=== PATIENT | male | born 1995 | race Caucasian/White ===

== ENCOUNTER 2017-06-06 18:53 | Inpatient (IN) | payer BC, OTHER ==
[~2017-06-06] VITALS: Ht 167.6 cm; Wt 63.5 kg
--- NOTE | 2017-06-07 02:00 | NUR ---
Intake Assessment Assessment done in the intake office. Px appears anxious but cooperative. A&Ox4. Px has NKA, on regular diet, wishes to be in full code. Px is ambulatory, with steady gait. Speech is clear and audible. ER=855/79, AZ= 109, RR= 18, O2sat= 97%, T= 97.3. Px is here for opiates, methamphetamine and ETOH dependence. No hx of seizures. No home medications with him. Unit protocols explained, and verbalized understanding.
[2017-06-07] MEDS ORDERED: LOPERAMIDE HCL 2 MG CAPSULE PO PRN ×2 (02:15)
[2017-06-07] MEDS ORDERED: MAGNESIUM HYDROXIDE 30 ML LIQUID UDC PO PRN (02:15)
[2017-06-07] MEDS ORDERED: IBUPROFEN 400 MG TABLET PO PRN (02:15)
[2017-06-07] MEDS ORDERED: THIAMINE HCL 200 MG/2 ML VIAL IM ONE (02:15)
[2017-06-07] MEDS ORDERED: DICYCLOMINE HCL 20 MG TABLET PO PRN (02:15)
[2017-06-07] MEDS ORDERED: ACETAMINOPHEN 325 MG TABLET PO PRN (02:15)
[2017-06-07] MEDS ORDERED: ONDANSETRON 4 MG/2 ML VIAL IM PRN (02:15)
[2017-06-07] MEDS ORDERED: LORAZEPAM 2 MG/1 ML VIAL IM PRN (02:15)
[2017-06-07] MEDS ORDERED: diphenhydrAMINE 50 MG CAPSULE PO PRN (02:15)
[2017-06-07] MEDS ORDERED: ONDANSETRON ODT 4 MG TAB.RAPDIS SL PRN (02:15)
[2017-06-07] MEDS ORDERED: MAG HYDROX/AL HYDROX/SIMETH 30 ML LIQUID UDC PO PRN (02:15)
[2017-06-07] MEDS ORDERED: MIRALAX 17 GM POWD.PACK PO PRN (02:15)
[2017-06-07] MEDS ORDERED: HYDROXYZINE PAMOATE 25 MG CAPSULE PO PRN (02:15)
[2017-06-07] MEDS ORDERED: CLONIDINE HCL 0.1 MG TABLET PO PRN (02:15)
[2017-06-07] MEDS ORDERED: LORAZEPAM 1 MG TABLET PO PRN (02:15)
--- NOTE | 2017-06-07 02:20 | NUR ---
Admission Notes 22 y/o male admitted on 06/07/17 for Opiate, Meth and ETOH dependence, arrived on the unit at 0220. Pt has NKA, denies history of seizures. Pt was able to provide UDS. Upon admission COWS 7 and CIWA 6 . BP: 127/79, P: 103, R: 18, O2: 97%, T: 98.2. Weight 140 lbs, height 56. Px reports he does not have a PCP, smokes .5 to 1 pack daily, denies being hospitalized within past 30 days. Px is able to understand and respond to all questions pertaining to his hospitalization. Substance Abuse History is as follows: 1. Oxycontine 30 mg x 10 to 15 pills taken PO daily for 5- 6 years 2. Methamphetamine 2- 3 G smoked daily for 2 years 3. Cognac 500 ml daily intermittently for 12 years, continuous for last 6 months Px's longest sober period for 5 days while px was in [facility] in [place], [place] from 05/31/2017 to 06/05/2017. Treatment history: Px was in [facility] in [place] from 05/31/2017 to 06/05/2017. PMH: Anxiety, depression. Px had minor surgeries on Left Hand and on Left Knee. Px did not bring any medications from home, but reports taking Trazodone, Clonidine, Rocaxin and Gabapentin, to be reconcile. Upon assessment, px is A&Ox4, px is mildly intoxicated, presents with anxiety,and has general body aches of 7/10. Respirations even and unlabored. Denies SOB, chest pain, N/V/D. Bowel sounds active x 4, abdomen soft. PERRLA. Skin intact, no open wounds noted. Px denies SI/HI. Educational information provided and left at bedside. Px oriented to room and encouraged to notify staff with any concerns. Safety measures in place. Call light within reach, side rails up x 2, bed locked and in low position. We'll continue to monitor.
[2017-06-07 02:53] LABS: BASOPHILS # (AUTO) 0.1 K/uL (0.0-8.0); BASOPHILS % (AUTO) 0.6 % (0.0-2.0); EOSINOPHILS # (AUTO) 0.1 K/uL (0.0-0.7); EOSINOPHILS % (AUTO) 0.8 % (0.0-7.0); HEMATOCRIT 43.3 % (40-50); HEMOGLOBIN 14.9 G/DL (14.0-18.0); LYMPHOCYTES % (AUTO) 22.7 % (20.5-51.5); MEAN CORPUSCULAR HEMOGLOBIN 29.7 UUG (27.0-31.0); MEAN CORPUSCULAR HGB CONC 34 g/dL (32.0-37.0); MEAN CORPUSCULAR VOLUME 86.5 FL (82.0-92.0); MONOCYTES # (AUTO) 0.7 K/UL (0.1-1.30); MONOCYTES % (AUTO) 7.6 % (0.0-11.0); NEUTROPHILS # (AUTO) 6.1 K/UL (1.8-8.9); NEUTROPHILS % (AUTO) 68.3 % (38.5-71.5); PLATELET COUNT (AUTO) 290 K/UL (150-450); RED BLOOD CELL COUNT(AUTO) 5.01 MIL/UL (4.7-6.1)
[2017-06-07 04:00] VITALS: BP 127/79
[2017-06-07] MEDS ORDERED: TRAZODONE 50 MG TABLET PO ONE (04:00)
[2017-06-07 04:07] LABS: ETHANOL < 3 MG/DL (0-0)
[2017-06-07 04:28] LABS: ALANINE AMINOTRANSFERASE 186 U/L (16-63); ALKALINE PHOSPHATASE 54 U/L (50-136); AMYLASE 84 U/L (25-115); ASPARTATE AMINOTRANSFERASE 80 U/L (15-37); BILIRUBIN,TOTAL 0.5 mg/dL (0.2-1.0); CARBON DIOXIDE 31 mmol/L (21-32); CHLORIDE 101 mmol/L (98-107); GLUCOSE 103 mg/dL (74-106); LIPASE 111 U/L (73-393); MAGNESIUM 2.1 mg/dL (1.8-2.4); POTASSIUM 3.9 mmol/L (3.5-5.1); TOTAL PROTEIN, SERUM 8.5 g/dL (6.4-8.2); UREA NITROGEN, BLOOD 11 mg/dL (7-18)
[2017-06-07] MEDS ORDERED: TRAZ-144 PO (05:01)
[2017-06-07] MEDS ORDERED: GABA-534 PO (05:01)
[2017-06-07] MEDS ORDERED: CLON0.1T PO (05:01)
[2017-06-07] MEDS ORDERED: METH-406 PO (05:01)
[2017-06-07 05:53] LABS: *AMPHETAMINE, URINE POSITIVE (NEGATIVE); *BARBITURATE, URINE NEGATIVE (NEGATIVE); *CANNABINOID, URINE NEGATIVE (NEGATIVE); *COCCAINE, URINE NEGATIVE (NEGATIVE); *OPIATE, URINE POSITIVE (NEGATIVE); *PHENCYCLIDINE SCREEN,URINE NEGATIVE (NEGATIVE)
--- NOTE | 2017-06-07 07:27 | NUR ---
End of Shift Notes 22 y/o male admitted on 06/07/17 for Opiate, Meth and ETOH dependence. Px has NKA, on regular diet, Full code. Denies history of seizures. Px presents with anxiety, and has general body aches of 7/10. Last COWS 7 and CIWA 6. Oral intake of 600 ml, voided 1x, no BM. Didnt sleep yet. Respirations even and unlabored. Safety measures in place. Call light within reach, side rails up x 2, bed locked and in low position. We'll continue to monitor.
--- NOTE | 2017-06-07 07:30 | NUR ---
Start of Shift Notes: Received patient in his room. Alert and verbally responsive. Oriented x 4. Easily arousable when his name is called. No changes in LOC noted. Respirations even and unlabored. No SOB noted. Skin warm and dry to touch. Abdomen soft and non-distended. BS (+) in all 4 quadrants. No complains of N/V/D or constipation noted. Bladder non-distended. No complains of dysuria noted. Voids independently. Ambulatory ad boone with steady gait. Patient is a 22 year old male admitted for opiate/meth and ETOH dependence who was placed on PRNs at this time. Prior to admission, patient was using 10-15 pills of 30 mg Ocycontin, 2-3 grams of methamphetamine and intermittent use of 500cc of cognac. Has reported past medical hx of anxiety, depression and minor surgeries to left hand and left knee. NKA. FULL CODE. Regular diet. On fall and seizure precautions. Educated patient on his current plan of care for the day and his medication regimen. Encouraged oral fluid intake and encouraged group participation to learn new skills to prevent relapse. Will continue to monitor closely.
[2017-06-07 08:00] VITALS: BP 103/48
[2017-06-07] MEDS: THIAMINE HCL 100 MG TABLET PO SCH (09:00)
[2017-06-07] MEDS: MULTIVITAMINS,THERAPEUTIC TABLET PO SCH (09:00)
[2017-06-07] MEDS: FOLIC ACID 1 MG TABLET PO SCH (09:00)
[2017-06-07] MEDS ORDERED: TUBERCULIN,PURIF.PROT.DERIV. 5 TU/0.1 ML TEST ID ONE (09:00)
--- NOTE | 2017-06-07 09:23 | NUR ---
All 0900 meds refused: Patient refused all due meds at 0900. Patient states "I'm too tired to take meds right now. Maybe later in the afternoon. I don't want a TB test at this time." Patient education provided regarding risk and consequences of taking meds but patient still refused. Will continue to monitor and encourage patient to comply. Patient noted with cough. No congestion. No runny nose and afebrile.
[2017-06-07] MEDS: LORAZEPAM 1 MG TABLET PO PRN ×3 (11:06→20:54)
[2017-06-07] MEDS: BUPRENORPHINE HCL 2 MG TAB.SUBL SL PRN ×2 (11:06→23:13)
--- NOTE | 2017-06-07 11:06 | NUR ---
Subutex 4 mg SL/Ativan 1 mg PO given: / 7, patient presented with moderate anxiety, chills, hot flashes, yawning, muscle aches, stomach cramps, mild sweats. Medicated patient with Subutex 4 mg SL and Ativan 1 mg PO as ordered. Will monitor for effectiveness.
--- NOTE | 2017-06-07 11:08 | NUR ---
Admission UDS results: Patient's UDS positive for benzodiazepines. Per patient, he was given Klonopin to detox from ETOH at [facility]. MD Torre aware.
--- NOTE | 2017-06-07 11:36 | NUR ---
Re-assessment: Subutex COWS 6, patient noted with less anxiety, less chills/hot flashes, pupils normal, no stomach cramps noted. PRN Subutex effective in reducing patient's opiate withdrawal symptoms.
[2017-06-07 12:00] VITALS: BP 93/52
--- NOTE | 2017-06-07 12:06 | NUR ---
Re-assessment: Ativan CIWA 4, less anxiety, less sweating noted. PRN Ativan 1 mg PO was effective in reducing withdrawal symptoms.
[2017-06-07 16:00] VITALS: BP 136/87
[2017-06-07] MEDS: METHOCARBAMOL 750 MG TABLET PO PRN (17:34)
--- NOTE | 2017-06-07 17:34 | NUR ---
Robaxin 750 mg PO/Ativan 1 mg PO given: Patient noted with complain of moderate anxiety, with sweaty palms and muscle aches 5/10. Medicated patient with Ativan 1 mg PO and Robaxin 750 mg PO given. Will monitor for effectiveness.
--- NOTE | 2017-06-07 18:33 | NUR ---
Re-assessment: Ativan/Robaxin COWS 2/CIWA 3, less anxiety and less sweating noted. Less muscle aches noted. PRN Ativan and Robaxin were effective.
--- NOTE | 2017-06-07 18:49 | NUR ---
End of Shift Notes: Patient continues to be on PRNs to manage his withdrawal symptoms. VS monitored closely q 4 hours. No significant abnormalities noted. Patient's withdrawal symptoms were closely monitored. Initial COWS/CIWA 2/2, but at 1106, patient's COWS increased to 12 and CIWA 7. Patient presented with chills, hot flashes, body aches, stomach cramps, pupil dilation, anxiety and yawning. Medicated patient with Ativan 1 mg and Subutex 4 mg SL from PRN. At 1734, patient noted with complain of moderate anxiety muscle aches, and sweaty palms resulting in CIWA 5, so patient was medicated with Ativan 1 mg PO as ordered and Robaxin 750mg PO as ordered with help after 1 hour. Last COWS 2/CIWA 3. Per patient, Ativan and Subutex has helped him with his withdrawal symptoms. Refused 0900 meds although encouraged. Patient is unable to participate in group and activities due to his withdrawal symptoms. Encouraged oral fluid intake to aid in the detox process. All needs met and attended. Will continue to monitor closely.
[2017-06-07 20:00] VITALS: BP 128/81
--- NOTE | 2017-06-07 20:00 | NUR ---
Start of Shift Pt is a 22 year old male admitted for Opiate/ETOH dependence, PRNs available for s/s of withdrawal. Pt reported using OxyContin 30mg 10-15 pills, Meth 2-3g and ETOH 500ml at the rate of 1 day. PMH: Anxiety, depression, minor surgeries on left hand and left knee. NKA, regular diet, fall precautions and full code. Upon assessment, pt reports feeling anxious, reports muscle/joint aches, feeling hot/cold with chills, respirations even/unlabored, denies sob/chest pain, denies n/v/d. Safety measures in place, call light within reach, side rails up x2, bed locked and in low position. Will continue to monitor.
--- NOTE | 2017-06-07 20:54 | NUR ---
PRN Administration CIWA 5, pt reports feeling anxious, skin is clammy/flushed, reports feeling hot/cold with chills. Ativan 1mg PRN and Clonidine 0.1mg PRN administered. Pt reports feeling constipated, reports difficulty using the restroom. Miralax 17 gm PRN administered. Safety measures in place. Will continue to monitor.
--- NOTE | 2017-06-07 21:54 | NUR ---
PRN Reassessment CIWA 4 Pt reports bowel movement Needs met, safety measures in place, will continue to monitor.
--- NOTE | 2017-06-07 23:13 | NUR ---
PRN Administration COWS 13 Pt presents with anxiety is irritable, skin is clammy/sweaty, reports feeling joint aches, pt is unable to sit still, nose running, reports stomach cramping. Subutex 4mg PRN administered. Safety measures in place. will continue to monitor.
--- NOTE | 2017-06-07 23:43 | NUR ---
PRN Reassessment COWS 5, pt reports, "I feel better, my body does not hurt anymore" Safety measures in place, will continue to monitor.
[2017-06-08] VITALS: BP 121/75
[2017-06-08] MEDS: TRAZODONE 50 MG TABLET PO PRN ×2 (00:51→20:25)
--- NOTE | 2017-06-08 00:51 | NUR ---
PRN Administration Pt requests sleeping aid. Trazodone 50mg PRN administration Safety measures in place, will continue to monitor.
--- NOTE | 2017-06-08 01:51 | NUR ---
PRN Reassessment Upon reassessment, pt is in bed resting with eyes closed, respirations even/unlabored. Safety measures in place, will continue to monitor.
[2017-06-08 04:00] VITALS: BP 112/79
--- NOTE | 2017-06-08 04:00 | NUR ---
Vital Signs/COWS & CIWA deferred BP 112/79, pulse 80, resp 17, SpO2 99%, temp 98.1, no pain COWS/CIWA deferred due to pt sleeping, to assess while pt is awake as ordered. Safety measures in place, will continue to monitor.
--- NOTE | 2017-06-08 07:00 | NUR ---
End of Shift Pt is a 22 year old male admitted for Opiate/ETOH dependence, PRNs available for s/s of withdrawal. Pt reported using OxyContin 30mg 10-15 pills, Meth 2-3g and ETOH 500ml at the rate of 1 day. PMH: Anxiety, depression, minor surgeries on left hand and left knee. NKA, regular diet, fall precautions and full code. During shift, pt reported feeling anxious, reported muscle/joint aches, feeling hot/cold with chills - Ativan 1mg PRN administered along with Clonidine 0.1mg PRN. Subutex 4mg PRN administered for COWS 13 with c/o anxiety is irritability, skin clammy/sweaty, reported feeling joint aches, pt is unable to sit still, nose running, reported stomach cramping. Latest COWS 5 and CIWA 4. Miralax 17gm PRN administered for reports of constipation, difficulty using the restroom. Pt slept for 3 hours, intake of 2450ml PO, voids x3 and stool x1. Safety measures in place, call light within reach, side rails up x2, bed locked and in low position. Endorsed to day shift nurse.
[2017-06-08 07:06] LABS: HEPATITIS B SURFACE AG Negative (Negative)
--- NOTE | 2017-06-08 07:34 | NUR ---
BEGINNING OF SHIFT Patient endorsement report received from night coordinator nurse, all pertinent information discussed. Patient is a 22 year old male admitted on: 06/07/2017 with admitting Dx: opiate dependence. With substance use history of: methamphetamine and etoh. Patient currently under close observation, no ongoing taper. Per night coordinator patient slept for 3 hours, received PRN: Ativan, clonidine, Subutex, miralax, and trazodone. Patient with last cow score of: 5 and ciwa score of: 4. Patient received awake, alert and oriented x4, patient educated regarding plan of care and medication regimen for the day with good verbal understanding. Safety measure sin place. call light kept with in reach, will continue to monitor.
[2017-06-08 08:14] VITALS: BP 103/59
[2017-06-08] MEDS: METHOCARBAMOL 750 MG TABLET PO PRN (09:01)
[2017-06-08] MEDS: FOLIC ACID 1 MG TABLET PO SCH (09:02)
[2017-06-08] MEDS: MULTIVITAMINS,THERAPEUTIC TABLET PO SCH (09:02)
[2017-06-08] MEDS: THIAMINE HCL 100 MG TABLET PO SCH (09:02)
[2017-06-08] MEDS: LORAZEPAM 1 MG TABLET PO PRN (09:02)
--- NOTE | 2017-06-08 09:02 | NUR ---
PRN ROBAXIN Patient c/o muscle aches 5/10, provided with non pharmacological interventions with no relief, administered Robaxin as ordered, will monitor effectiveness of medication.
--- NOTE | 2017-06-08 10:00 | NUR ---
Activity Group Note: Attempt made for group participation. Client refused. Will attempt when time permits.
--- NOTE | 2017-06-08 10:02 | NUR ---
ROBAXIN REASSESSMENT Patient reports medication effective, reports pain level of 0/10 will continue to monitor.
[2017-06-08 13:01] VITALS: BP 111/58
--- NOTE | 2017-06-08 13:45 | NUR ---
Activity Group Note: Attempt made for group participation. Client refused. Will attempt again when time permits.
[2017-06-08] MEDS ORDERED: IBUP-1955 PO (14:23)
[2017-06-08] MEDS ORDERED: GABA-536 PO (14:23)
[2017-06-08] MEDS ORDERED: METH-406 PO (14:23)
[2017-06-08] MEDS ORDERED: HYDR-3895 PO (14:23)
[2017-06-08] MEDS ORDERED: DICY20TA28 PO (14:23)
[2017-06-08] MEDS: GABAPENTIN 400 MG CAPSULE PO SCH ×2 (15:11→20:25)
[2017-06-08 17:07] VITALS: BP 128/66
--- NOTE | 2017-06-08 18:59 | NUR ---
END OF SHIFT Patient alert and oriented x4, vital signs were stable during shift. Patient compliant with therapeutic plan of care. Patients continues under close observation. patient with admitting Dx: opiate dependence. currently with no ongoing taper, continues under close observation patient is scheduled to be discharged tomorrow, noted self motivated towards sobriety. 0900 presented with: c/o chills, mild bone and joint aches, nasal stuffiness, tremors that can be felt but not seen, irritable, anxiety, barely sweating and mild agitation with ciwa score of: 7 and cow score of: 6; 1300 assessment patient presented with: mild bone and joint aches, nasal stuffiness, mild anxiety, tremors that can be felt but not seen, and mild agitation with cow score of: 4 and ciwa score eof: 3. 1700 assessment patient presetned with:mild bone and joint aches, nasal stuffiness, mild anxiety, tremors that can be felt but not seen, and mild agitation with cow score of: 4 and ciwa score of: 3. Patient encouraged adequate PO fluid intake as tolerated. Patient encouraged to attend group therapies/sessions to learn new coping skills to prevent relpase. Denies SI/HI. safety measures in place. call light kept with in reach, patient endorsed to production supervisor off shift nurse, all pertinent information discussed. will continue to monitor. Addendum: 06/08/17 at 1909 by ROBERT PRETTY LVN administered Motrin 400mg Po as ordered at 1813 for c/o back pain 01/29, endorsed to production supervisor off shift nurse to follow up with effectiveness of medication, will continue to monitor.
--- NOTE | 2017-06-08 19:15 | NUR ---
PRN Motrin Reassessment: Patient denies pain at this time, and states that PRN Motrin was effective.
[2017-06-08 20:00] VITALS: BP 114/70
--- NOTE | 2017-06-08 20:00 | NUR ---
Start of Shift Note: Report received from day shift nurse. Pt is a 22M admitted on 06/07/17 for medically-supervised withdrawal from opiates, amphetamines, and ETOH. Pt reports taking 10-15 tablets of 30mg OxyContin, using 2-3g methamphetamine, and drinking 500mL cognac intermittently since discharging from another detox facility a few days ago. Pt is to discharge tomorrow. Pt received with last COWS=4/CIWA=3, and PRN Motrin and PRN Robaxin were administered during day shift. Pt is a full code. Pt reports NKDA/NKFA. Pt is on a regular diet. PMHx: anxiety, depression, and minor surgeries on left hand and left knee. Pt received in room and reports anxiety. Pt verbalizes readiness for discharge. Bed is in low position and locked, side rails up x2, call light is within reach. Will continue to monitor.
--- NOTE | 2017-06-08 20:25 | NUR ---
PRN Trazodone: Patient complains of inability to sleep. Administered PRN Trazodone as ordered. Will reassess at end of shift.
--- NOTE | 2017-06-09 | NUR ---
Vitals Refused, COWS/CIWA Deferred: Patient refuses ordered 00:00 vital signs. Pt educated on risks and benefits but still refused. COWS and CIWA are deferred for sleep. All safety precautions are in place. Will continue to monitor. Addendum: 06/09/17 at 0145 by GERARDO AUSTIN RN Amended: Links added.
--- NOTE | 2017-06-09 04:00 | NUR ---
Vitals Refused, COWS/CIWA Deferred: Patient refuses ordered 04:00 vital signs. Patient educated on risks and benefits but still refused. COWS and CIWA are deferred for sleep. All safety precautions are in place. Will continue to monitor. Addendum: 06/09/17 at 0439 by GERARDO AUSTIN RN Amended: Links added.
--- NOTE | 2017-06-09 07:02 | NUR ---
End of Shift Note: Pt is a 22M admitted to [facility] on 06/07/17 for medically-supervised withdrawal from opiates, amphetamines, and ETOH. Pt reported a PMHx of anxiety, depression, and minor surgeries on left hand and left knee. Pt is a full code, reports NKDA/NKFA, and is on a regular diet. Pt reported taking 10-15 tablets of 30mg OxyContin, using 2-3g methamphetamine, and drinking 500mL cognac intermittently since discharging from another detox facility a few days ago. Pt is to discharge today. Scheduled medication regime managed s/s of withdrawal this shift. Last COWS=4/CIWA=2 at 20:00. V/S stable throughout shift. Total fluid intake this shift: 2800 ml; output: urine x 6 and BM x 4. PRN Trazodone was given for insomnia, which was effective and slept 9 hours this shift. All needs have been attended and met. Pt endorsed to day shift nurse.
--- NOTE | 2017-06-09 07:35 | NUR ---
START OF SHIFT Received report from night nurse. 22 year old male admitted on 06/07/17 for Opiate, ETOH and Methamphetamine withdrawals. Pt is on PRNs only. No PRNs needed or administered. Pt is medically cleared for discharge and does not present with acute s/s of withdrawals. Pt slept for 9 hours. Pt remains compliant and states he is ready for treatment. Pt denies bringing home medications. Most recent COWS 4 and CIWA 2. V/S remain WNL. Safety measures in place, will continue to monitor.
[2017-06-09 08:06] VITALS: BP 117/71
[2017-06-09] MEDS: FOLIC ACID 1 MG TABLET PO SCH (08:36)
[2017-06-09] MEDS: THIAMINE HCL 100 MG TABLET PO SCH (08:36)
[2017-06-09] MEDS: GABAPENTIN 400 MG CAPSULE PO SCH (08:36)
[2017-06-09] MEDS: MULTIVITAMINS,THERAPEUTIC TABLET PO SCH (08:36)
--- NOTE | 2017-06-09 09:30 | NUR ---
D/C NOTE Pt is A/O x4. Pt denies SI/HI or hallucinations. Denies acute s/s of withdrawals. COWS 2 and CIWA 1. All pt belongings are with pt, did not bring any home medications. Refused TB test, no s/s of distress. Pt education provided on importance of med compliance, smoking cessation and risks of Hepatitis C, pt verbalizes understanding. All needs met. Pt is being accompanied by PRODUCTION SUPERINTENDENT at this time to be transported to rehab. All needs met, pt is stable.
== END 2017-06-09 09:30 | disposition home or self-care (01) | DRG 895 ==
LOC: SRC 06-07 01:02
PROVIDERS: ADMIT Internal Medicine; ATTEND Internal Medicine
PROC: HZ2ZZZZ Detoxification Services for Substance Abuse Treatment (ICD-10-PCS; principal; 2017-06-07)
PROC: HZ41ZZZ Group Counseling for Substance Abuse Treatment, Behavioral (ICD-10-PCS; 2017-06-08)
DX: F10.230 Alcohol dependence with withdrawal, uncomplicated (principal); F11.23 Opioid dependence with withdrawal; Y90.9 Presence of alcohol in blood, level not specified; F15.23 Other stimulant dependence with withdrawal; F17.210 Nicotine dependence, cigarettes, uncomplicated; Z91.89 Other specified personal risk factors, not elsewhere classified; Z81.1 Family history of alcohol abuse and dependence; Z65.3 Problems related to other legal circumstances; F14.21 Cocaine dependence, in remission; F41.9 Anxiety disorder, unspecified; F32.9 Major depressive disorder, single episode, unspecified; R74.0 Nonspecific elevation of levels of transaminase and lactic acid dehydrogenase [LDH]
CPT/HCPCS: 36415; 70030-TC; 80307; 80324; 80346; 80361; 83690; 83735; 84443; 85025; 86592; 86705; 86803; 87340; 87806; G0480; J3411